=== PATIENT | male | born 1975 | race Caucasian/White ===

== ENCOUNTER 2024-05-20 12:18 | Emergency (ER) | payer OTHER, BC, SELFPAY ==
--- OUTSIDE RECORDS SUMMARY | 2024-05-20 12:22 | XMS_ITS | Patient Health Record ---
Author Organization [facility] Address [address] [place] [address] Care Team Providers Care Grill Attendant Name Role Phone Christopher Del Real Primary Care Provider Allergies No Known Allergies Reason For Referral No Information Medications Medication SIG (Take, Route, Frequency, Duration) Notes Start Date End Date Status Wellbutrin SR 100 MG 1 tablet in the mor pooja Orally twice a day for 30 day(s) Active Atorvastatin Calcium 10 MG 1 tablet Oral ly Once a day for 30 day(s) 10/08/2021 Active Omeprazole 40 MG 1 capsule 30 minutes before morning meal Orally Once a day for 30 days Active Social History Tobacco Use: Social History Observation Description Date Details (start date - stop date) Current Smoker NA - NA Sex Assigned At : Social History Observation Description Sex Assigned At Male Dont use, Tobacco Use/Smoking Question Answer Notes Are you a current every day smoker Additional Findings: Tobacco User Heavy cigarett e smoker (20-39 cigs/day) Alcohol Screen (Audit-C) Question Answer Notes Did you have a drink containing alcohol in the p ast year? Yes PRAPARE Question Answer Notes What is your current housing situation? I have h ousing Are you worried about losing your housing? No What is the highest level of school that you have finished? 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 Check all that apply Utilities Has lack of transportation k ept you from medical appointments, meetings, work or from getting things needed for daily living? No How often do you see or talk to people that you care about and feel close to? (For example: talking to friends on the phone, visiting friends or family, going to scientology or club meetings) More than 5 times a week How stressed are you? Stress is when someone feels tense, nervous, anxious, or can\t sleep at night because their mind is troubled Somewhat In the past year have you sp ent more than 2 nights in a row in a detention, long term, fci center, or juvenile correctional facility? Yes What was your release date? 01/10/2021 Are you a refugee? No What country are you from? [place] Do you feel physically and e motionally safe where you currently live? Yes In the past year, have you b een afraid of your partner or ex-partner? No PRAPARE Score: 4 Problems Problem Type SNOMED Code ICD Code Onset Dates Problem Status W/U Status Risk Notes Problem Tobacco user (805216966) Nicotine dependence, unspecified, uncomplicated (F17.200) Active confirmed Problem 804553377 Adjustment disor chrystal with mixed anxiety and depressed mood (F43.23) 2 Active confirmed Problem 63436397 ADHD (attention deficit hyperactivity disorder), combined type (F90.2) Active confirmed Problem 74485382 PTSD (post-traum atic stress disorder) (F43.10) 2 Active confirmed Problem 43164959 EFRAIN (generalized anxiety disorder) (F41.1) 2 Active confirmed Problem 53000891 Sleep disturbanc e (G47.9) Active confirmed Problem 361720605 MDD (major depressive disorder), recurrent episode, moderate (F33.1) 2 Active confirmed Problem Tobacco user (554524719) Nicotine addiction (F17.200) Active confirmed Problem 953131961 Obesity (BMI 30-39.9) (E66.9) Active confirmed Problem 18573372 Hyperlipidemia, unspecified hyperlipidemia type (E78.5) Active confirmed Problem 733450558 Tobacco use diso rder (F17.200) Active confirmed Problem Obesity (773470579) Obesity, unspecified classification, unspecified obesity type, unspecified whether serious comorbidity present (E66.9) Active confirmed Problem 907785409 Gastroesophageal reflux disease, unspecified whether esophagitis present (K21.9) Active confirmed Problem 073971115 Methamphetamine use disorder, severe, dependence (F15.20) Active confirmed Plan Of Treatment Future Test Test Name Order Date Hemoglobin A1c* 04/08/2022 Lipid Panel* 04/08/2022 CMP 14 Comprehensive Metabolic Panel* Insurance Providers Payer Name Payer Address Payer Phone Subscriber Number Group Number Insured Name Patient Relationship to Insured Coverage Start Date Coverage End Date [facility] [address] [place] [address] [id number] 1 Tim Banda Self - patient is the insured 1 [facility] [address] [facility] [address] [place] [address] [id number] 1 Tim Banda Self - patient is the insured 1 Medical (General) History Medical History History ICD Code Prediabetes Hyperlipidemia MDD/EFRAIN Surgical History Surgery Date(Month/Year) Galbladder removal 2016 Hospitalization History Reason Date(Month/Year)
--- OUTSIDE RECORDS SUMMARY | 2024-05-20 12:22 | XMS_ITS | Data Portability ---
Author Organization [place] - [facility] [employer], Main Office Address [address] [place] [address] Assessment Encounter Date Assessment Date Assessment LastModified by Organization Details LastModified Time 05/05/2022 05/05/2022 Blood work stool studies he can go ahead and take some Nexium continue that try some cholestyramine as some of the diarrhea seems to be after cholecystectomy possibly some bile salt diarrhea follow-up with me in 1 month [email or web address] Not available 05/17/2022 21:33:22 07/03/2022 07/03/[address] scan abdom en and pelvis see me back 4 months [email or web address] Not available 07/03/2022 23:12:55 Plan of Treatment Reminders Order Date Submit Date Provider Last Modified By Organization Details Last Modified Time Details Appointments None recorded. Lab TSH, serum or plasma 2022 023 [facility] (Lab), [address] [place], [address], 3 19:45:58 T4, free, serum 2022 023 [facility] (Lab), [address] [place], [address], 3 19:31:47 T3, free, serum or plasma 2022 023 [facility] (Lab), [address] [place], [address], 3 19:25:02 O&P (ova & parasites), stool 2022 023 [facility] (Lab), [address] [place], [address], 3 17:20:43 culture, stool - stool C&S 2022 023 [facility] (Lab), [address] [place], [address], 3 11:02:00 C diff toxin A+B, qualitative , stool 2022 023 [facility] (Lab), [address] [place], [address], 3 17:20:54 inflammator y bowel disease Ab panel, serum 2022 023 [facility] (Lab), [address] [place], [address], 3 17:20:59 CMP, serum or plasma 2022 023 [facility] (Lab), [address] [place], [address], 3 18:00:22 CBC w/ auto diff 2022 023 [facility] (Lab), [address] [place], [address], 3 16:58:16 ESR (erythrocyt e sedimentati on rate), blood 2022 023 [facility] (Lab), [address] [place], [address], 3 17:25:01 C-reactive protein, quantitativ e, serum or plasma 2022 023 [facility] (Lab), [address] [place], [address], 3 17:20:34 lipid panel, serum 2022 023 [facility] (Lab), [address] [place], [address], 3 18:00:27 Referral gastroenter ologist referral - Pt needs office visit please. 2022 023 [facility] Valentino Baldwin MD, [address], [address], [place], [address], 3 10:12:14 Procedures None recorded. Surgeries None recorded. Imaging CT, abdomen + pelvis, w/ contrast 2022 023 [facility] ([facility]), [address] [place], [address], 3 09:06:08 Medication Orders Cholestyram ine Light 4 gram oral powder 2022 023 [email or web address] [id number], [address] , [place], [place], [id number], 3 17:45:06 Patient TargetsNo targets recorded. Patient InstructionsNo instructions recorded. 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 Referring Physician: Leo Pérez, Internal Medicine, Encounter Date: 07/03/2022 Results Created Date Observation Date Name Description Value Unit Range Abnormal Flag Note LastModifiedBy Organization Detail LastModifiedTime 06/21/1906/20/2022 CBC/C OMPLE TE BLD COUNT W/DIF F white blood cells 8.0 x10'3 /uL 4.2-10 .8 Not Available [facility] (Lab) [address] [place], [address], 06/20/2022 16:58:16 06/21/19 23 06/20/2022 CBC/C OMPLE TE BLD COUNT W/DIF F red blood cells 4.92 x10'6 /uL 4.10-5 .80 Not Available [facility] (Lab) [address] [place], [address], 06/20/2022 16:58:16 06/21/1906/20/2022 CBC/C OMPLE TE BLD COUNT W/DIF F hemoglobin 14.4 g/dL 13.2-1 7.0 Not Available [facility] (Lab) [address] [place], [address], 06/20/2022 16:58:16 06/21/19 23 06/20/2022 CBC/C OMPLE TE BLD COUNT W/DIF F hematocrit 43.5 % 39.3-5 0.0 Not Available [facility] (Lab) [address] [place], [address], 06/20/2022 16:58:16 06/21/1906/20/2022 CBC/C OMPLE TE BLD COUNT W/DIF F mean red cell volume 88.4 fL 80.0-9 7.0 Not Available [facility] (Lab) [address] [place], [address], 06/20/2022 16:58:16 06/21/1906/20/2022 CBC/C OMPLE TE BLD COUNT W/DIF F mean red cell hemoglobin 29.3 pg 27.0-3 3.0 Not Available [facility] (Lab) [address] [place], [address], 06/20/2022 16:58:16 06/21/19 23 06/20/2022 CBC/C OMPLE TE BLD COUNT W/DIF F mean RBC HGB concentratio n 33.1 g/dL 31.0-3 6.0 Not Available [facility] (Lab) [address] [place], [address], 06/20/2022 16:58:16 06/21/19 23 06/20/2022 CBC/C OMPLE TE BLD COUNT W/DIF F red cell distribution width 13.1 % 11.8-1 5.5 Not Available [facility] (Lab) [address] [place], [address], 06/20/2022 16:58:16 06/21/1906/20/2022 CBC/C OMPLE TE BLD COUNT W/DIF F platelets 318 x10'3 /uL 150-40 0 Not Available [facility] (Lab) [address] [place], [address], 06/20/2022 16:58:16 06/21/1906/20/2022 CBC/C OMPLE TE BLD COUNT W/DIF F mean platelet volume 10.0 fL 9.0-12 .4 Not Available [facility] (Lab) [address] [place], [address], 06/20/2022 16:58:16 06/21/1906/20/2022 CBC/C OMPLE TE BLD COUNT W/DIF F neutrophils 59.8 % 39.0-7 2.0 Not Available [facility] (Lab) [address] [place], [address], 06/20/2022 16:58:16 06/21/1906/20/2022 CBC/C OMPLE TE BLD COUNT W/DIF F lymphocytes 27.3 % 16.0-4 7.0 Not Available [facility] (Lab) [address] [place], [address], 06/20/2022 16:58:16 06/21/1906/20/2022 CBC/C OMPLE TE BLD COUNT W/DIF F monocytes 11.0 % 5.0-12 .0 Not Available [facility] (Lab) [address] [place], [address], 06/20/2022 16:58:16 06/21/19 23 06/20/2022 CBC/C OMPLE TE BLD COUNT W/DIF F eosinophils 0.8 % 1.0-7. 0 low Not Available [facility] (Lab) [address] [place], [address], 06/20/2022 16:58:16 06/21/19 23 06/20/2022 CBC/C OMPLE TE BLD COUNT W/DIF F basophils 0.8 % 0.0-2. 0 Not Available [facility] (Lab) [address] [place], [address], 06/20/2022 16:58:16 06/21/19 23 06/20/2022 CBC/C OMPLE TE BLD COUNT W/DIF F immature granulocytes 0.3 % 0.00-0 .50 Not Available [facility] (Lab) [address] [place], [address], 06/20/2022 16:58:16 06/21/1906/20/2022 CBC/C OMPLE TE BLD COUNT W/DIF F neutrophils, absolute count 4.79 x10'3 /uL 1.5-8. 0 Not Available [facility] (Lab) [address] [place], [address], 06/20/2022 16:58:16 06/21/19 23 06/20/2022 CBC/C OMPLE TE BLD COUNT W/DIF F lymphocytes, absolute count 2.18 x10'3 /uL 1.07-3 .43 Not Available [facility] (Lab) [address] [place], [address], 06/20/2022 16:58:16 06/21/19 23 06/20/2022 CBC/C OMPLE TE BLD COUNT W/DIF F monocytes, absolute count 0.88 x10'3 /uL 0.29-0 .99 Not Available [facility] (Lab) [address] [place], [address], 06/20/2022 16:58:16 0506/20/2022 CBC/C OMPLE TE BLD COUNT W/DIF F eosinophils, absolute count 0.06 x10'3 /uL 0.02-0 .53 Not Available [facility] (Lab) [address] [place], [address], 06/20/2022 16:58:16 06/21/19 23 06/20/2022 CBC/C OMPLE TE BLD COUNT W/DIF F basophils, absolute count 0.06 x10'3 /uL 0.01-0 .08 Not Available [facility] (Lab) [address] [place], [address], 06/20/2022 16:58:16 06/21/19 23 06/20/2022 CBC/C OMPLE TE BLD COUNT W/DIF F immature granulocytes ,absolute 0.02 x10'3 /uL 0.00-0 .05 Not Available [facility] (Lab) [address] [place], [address], 06/20/2022 16:58:16 06/21/19 23 06/20/2022 CBC/C OMPLE TE BLD COUNT W/DIF F nucleated red blood cells 0.0 % -0 Not Available [facility] (Lab) [address] [place], [address], 06/20/2022 16:58:16 06/21/19 23 06/20/2022 CBC/C OMPLE TE BLD COUNT W/DIF F NRBC# 0.00 x10'3 /uL Not Available [facility] (Lab) [address] [place], [address], 06/20/2022 16:58:16 06/21/19 23 06/20/2022 SEDIM ENTAT ION RATE erythrocyte sedimentatio n rate 7 mm/HR 0-20 Not Available [facility] (Lab) [address] [place], [address], 06/20/2022 17:25:01 06/21/19 23 06/20/2022 COMPR EHENS ROVERTO METAB OLIC PANEL sodium 140 mmol/ L 137-14 5 Not Available [facility] (Lab) [address] [place], [address], 06/20/2022 18:00:22 06/21/19 23 06/20/2022 COMPR EHENS ROVERTO METAB OLIC PANEL potassium 4.4 mmol/ L 3.5-5. 1 Not Available [facility] (Lab) [address] [place], [address], 06/20/2022 18:00:22 06/21/19 23 06/20/2022 COMPR EHENS ROVERTO METAB OLIC PANEL chloride 105 mmol/ L 98-107 Not Available [facility] (Lab) [address] [place], [address], 06/20/2022 18:00:22 06/21/19 23 06/20/2022 COMPR EHENS ROVERTO METAB OLIC PANEL carbon dioxide 28 mmol/ L 22-30 Not Available [facility] (Lab) [address] [place], [address], 06/20/2022 18:00:22 06/21/19 23 06/20/2022 COMPR EHENS ROVERTO METAB OLIC PANEL anion gap 11.4 mmol/ L 14-22 low Not Available [facility] (Lab) [address] [place], [address], 06/20/2022 18:00:22 06/21/19 23 06/20/2022 COMPR EHENS ROVERTO METAB OLIC PANEL glucose 78 mg/dL 70-99 Not Available [facility] (Lab) [address] [place], [address], 06/20/2022 18:00:22 06/21/19 23 06/20/2022 COMPR EHENS ROVERTO METAB OLIC PANEL BUN 21 mg/dL 8-19 high Not Available [facility] (Lab) [address] [place], [address], 06/20/2022 18:00:22 06/21/1906/20/2022 COMPR EHENS ROVERTO METAB OLIC PANEL creatinine 0.95 mg/dL 0.66-1 .25 Not Available [facility] (Lab) [address] [place], [address], 06/20/2022 18:00:22 06/21/1906/20/2022 COMPR EHENS ROVERTO METAB OLIC PANEL GFR >60 Refer ence Range : Brewer ge GFR Healt hy Adult : >60 mL/mi n/1.7 3 m2 Chron ic Kidne y Disea se: 15-60 mL/mi n/1.7 3 m2 Kidne y Failu re: <15/m L/min /1.73 m2 www.n iddk. nih.g ov The MDRD study equat ion has not been valid ated in child samantha <18 years of age; pregn ant women ; the elder ly >85 years of age; or in some racia l or ethni c subgr oups, such as Hisnc nics. Outsi de the valid ated martha eters , estim ated GFR is less accur ate, requi ring clini trev judgm ent on a case- by-ca se basis . Clini trev inter preta tion for other races and ages must be made by the clini maicol. The MDRD study equat ion has not been valid ated for the evalu ation of serum creat inine relat ed to nutri bobby l statu s or medic ation usage . For perso ns <18 years of age, a pedia tric GFR calcu lator is avail able on the NKF websi te: https ://jody henderson.kali mcgrath/pr ofess ional s/kdo qi/gf r_cal culat or Not Available [facility] (Lab) [address] [place], [address], 06/20/2022 18:00:22 06/21/1906/20/2022 COMPR EHENS ROVERTO METAB OLIC PANEL alkaline phosphatase 37 U/L 38-126 low Not Available [facility] (Lab) [address] [facility] [place], [address], 06/20/2022 18:00:22 06/21/19 23 06/20/2022 COMPR EHENS ROVERTO METAB OLIC PANEL alanine aminotransfe rase 30 U/L 0-50 Not Available [facility] (Lab) [address] [place], [address], 06/20/2022 18:00:22 06/21/19 23 06/20/2022 COMPR EHENS ROVERTO METAB OLIC PANEL aspartate aminotransfe rase 34 U/L 15-46 Not Available [facility] (Lab) [address] [place], [address], 06/20/2022 18:00:22 06/21/19 23 06/20/2022 COMPR EHENS ROVERTO METAB OLIC PANEL bilirubin, total 0.40 mg/dL 0.20-1 .30 Not Available [facility] (Lab) [address] [place], [address], 06/20/2022 18:00:22 06/21/19 23 06/20/2022 COMPR EHENS ROVERTO METAB OLIC PANEL calcium 8.7 mg/dL 8.4-10 .2 Not Available [facility] (Lab) [address] [place], [address], 06/20/2022 18:00:22 06/21/19 23 06/20/2022 COMPR EHENS ROVERTO METAB OLIC PANEL total protein 6.8 g/dL 6.3-8. 2 Not Available [facility] (Lab) [address] [place], [address], 06/20/2022 18:00:22 06/21/19 23 06/20/2022 COMPR EHENS ROVERTO METAB OLIC PANEL albumin 4.0 g/dL 3.4-5. 0 Not Available [facility] (Lab) [address] [place], [address], 06/20/2022 18:00:22 06/21/1906/20/2022 COMPR EHENS ROVERTO METAB OLIC PANEL globulin 2.8 g/dL 2.6-4. 2 Not Available [facility] (Lab) [address] [place], [address], 06/20/2022 18:00:22 06/21/1906/20/2022 COMPR EHENS ROVERTO METAB OLIC PANEL A/G ratio 1.4 ratio 1.0-2. 0 Not Available [facility] (Lab) [address] [place], [address], 06/20/2022 18:00:22 06/21/1906/20/2022 LIPID PANEL cholesterol 226 mg/dL 140-19 9 high NIH JOSE NSUS RECOM MENDA TION FOR SWATI STERO L: ADULT CHILD LOW RISK: <200 <170 BORDE RLINE : <200- 239 ----- HIGH RISK: >240 >200 Not Available [facility] (Lab) [address] [place], [address], 06/20/2022 18:00:27 06/21/1906/20/2022 LIPID PANEL triglyceride s 110 mg/dL 0-150 NIH JOSE NSUS REPOR T RECOM MENDA TION FOR TRIGL YCERI JEWELL: ADULT CHILD LOW RISK: <150 ----- BODER LINE: 150-1 99 ----- HIGH RISK: >200 ----- Not Available [facility] (Lab) [address] [place], [address], 06/20/2022 18:00:27 06/21/1906/20/2022 LIPID PANEL HDL cholesterol 43 mg/dL 40- Not Available [facility] (Lab) [address] [place], [address], 06/20/2022 18:00:27 06/21/19 23 06/20/2022 LIPID PANEL LDL cholesterol, calculated 161 mg/dL 0-130 high NIH JOSE NSUS REPOR T RECOM MENDA TIONS FOR LDL: ADULT CHILD LOW RISK <130 <110 (OPTI MAL LDL) <100 ----- BORDE RLINE : 130-1 59 ----- HIGH RISK: >160 >130 A TRIGL YCERI DE RESUL T >400 INVAL IDATE S THE CALCU LATIO N FOR LDL FRACT IONAT ION - THE LDL RESUL T WILL NOT BE REPOR DONNELL. Not Available [facility] (Lab) [address] [place], [address], 06/20/2022 18:00:27 06/21/1906/20/2022 C REACT ROVERTO PROTE IN,UL TRA SENS C-reactive protein 0.23 mg/dL 0.0-0. 5 Not Available [facility] (Lab) [address] [place], [address], 06/20/2022 19:20:13 06/21/1906/20/2022 T3 FREE free T3 4.0 pg/mL 2.77-5 .27 Not Available [facility] (Lab) [address] [place], [address], 06/20/2022 19:32:23 06/21/19 23 06/20/2022 T4 FREE free T4 0.94 NG/dL 0.78-2 .19 Not Available [facility] (Lab) [address] [place], [address], 06/20/2022 19:31:47 06/21/1906/20/2022 TSH thyroid-stim ulating hormone 0.838 uIU/m L 0.465- 4.680 Not Available [facility] (Lab) [address] [place], [address], 06/20/2022 19:45:58 06/21/19 23 06/23/2022 IBD/I NFLAM M BOWEL DISEA SE PANL marcial 35 units 0-50 Negat roverto <45 Equiv ocal 45 - 50 Posit roverto >50 Not Available [facility] (Lab) [address] [place], [address], 06/23/2022 17:08:58 06/21/19 23 06/23/2022 IBD/I NFLAM M BOWEL DISEA SE PANL acca 28 units 0-90 Negat roverto <80 Equiv ocal 80 - 90 Posit roverto >90 Not Available [facility] (Lab) [address] [place], [address], 06/23/2022 17:08:58 06/21/19 23 06/23/2022 IBD/I NFLAM M BOWEL DISEA SE PANL alca 53 units 0-60 Negat roverto <55 Equiv ocal 55 - 60 Posit roverto >60 Not Available [facility] (Lab) [address] [place], [address], 06/23/2022 17:08:58 06/21/19 23 06/23/2022 IBD/I NFLAM M BOWEL DISEA SE PANL amca 34 units 0-100 Negat roverto < 90 Equiv ocal 90 - 100 Posit roverto >100 . This test was devel oped and its perfo rmanc e omero cteri stics deter mined by [facility]. It has not been clear ed or appro zenaida by the Food and Drug Admin istra tion. The FDA has deter mined that such clear ance or appro geovanni is not neces ravinder. Not Available [facility] (Lab) [address] [place], [address], 06/23/2022 17:08:58 06/21/19 23 06/23/2022 IBD/I NFLAM M BOWEL DISEA SE PANL A-panca Negati ve negati ve Not Available [facility] (Lab) [address] [place], [address], 06/23/2022 17:08:58 06/21/19 23 06/23/2022 IBD/I NFLAM M BOWEL DISEA SE PANL commen Nathan Sheikh rn is not sugge stive of Infla mmato ry Bowel Disea se Perfo rmed at: [facility] [place] [address] , [place] [address] Lab Direc tor: Desi brito MD, Phone : [phone] Not Available [facility] (Lab) [address] [place], [address], 06/23/2022 17:08:58 06/22/19 23 06/23/2022 C DIFFI CILE TOXIN /EPI, DNA toxigenic C.difficile NEGATI VE Not Available [facility] (Lab) [address] [place], [address], 06/23/2022 13:11:28 06/22/19 23 06/23/2022 C DIFFI CILE TOXIN /EPI, DNA 027-nap1-bi strain NEGATI VE 027-N API-B 1 STRAI N RESUL TS ARE CONSI DERED TO BE PRESU MPTIV E. Not Available [facility] (Lab) [address] [place], [address], 06/23/2022 13:11:28 06/22/19 23 06/24/2022 SHIGA (E.CO LI) TOXIN STOOL toxin 1 NEGATI VE Not Available [facility] (Lab) [address] [place], [address], 06/24/2022 11:19:06 06/22/1906/24/2022 SHIGA (E.CO LI) TOXIN STOOL toxin 2 NEGATI VE THIS TEST IS FOR THE RAPID DETEC TION OF SHIGA TOXIN -PROD UCING STRAI NS OF ENTER OHEMO RRAGH IC E. COLI. Not Available [facility] (Lab) [address] [place], [address], 06/24/2022 11:19:06 06/22/19 23 06/24/2022 SHIGA (E.CO LI) TOXIN STOOL QC pos POSITI VE Not Available [facility] (Lab) [address] [place], [address], 06/24/2022 11:19:06 06/22/19 23 06/24/2022 SHIGA (E.CO LI) TOXIN STOOL QC neg NEGATI VE Not Available [facility] (Lab) [address] [place], [address], 06/24/2022 11:19:06 06/22/19 23 06/30/2022 OVA + ALE ITE EXAM ova + parasite exam Final report These resul ts were obtai delroy using wet prepa ratio n(s) and trich yuli stain ed smear . This test does not inclu de testi ng for Crypt ospor idium parvu m, Cyclo spora , or Micro spori jitendra. Not Available [facility] (Lab) [address] [place], [address], 06/30/2022 14:10:04 06/22/19 23 06/30/2022 OVA + ALE ITE EXAM result 1 Commen t No ova, cysts , or ale ites seen. . One negat roverto speci men does not rule out the possi bilit y of a ale itic infec tion. Perfo rmed at: [facility] [place] [address] Lab Direc tor: Salvador leija PhD, Phone : [phone] Not Available [facility] (Lab) [address] [place], [address], 06/30/2022 14:10:04 03/29/19 22 03/26/2021 CT, neck, w/ contr ast No observ ation record ed. [id number] [facility] [address] [place], [address], 04/09/2022 15:40:56 Result Notes None recorded. Problems Name Problem SNOMED Code Status Onset Date Resolution Date Notes Provider Name and Address Organization Details Recorded Time Cellulitis 452026473 Active Not Available [facility] 3 15:40:15 Mass of left parotid gland 5120751150595 9103 Active 2021 Not Available [facility] 3 15:40:15 Parotid sialolithi asis 441781782 Active 2021 Not Available [facility] 3 15:40:15 Abdominal pain 69801053 Active Not Available [facility] 3 15:40:15 Chronic sialadenit is 904551053 Active 2021 Not Available [facility] 3 15:40:15 Gastroesop hageal reflux disease 322667557 Active Not Available [facility] 3 15:40:15 Low back pain 168673467 Active Not Available [facility] 3 15:40:15 Bronchitis 11672808 Active Not Available [facility] 3 15:40:15 Shoulder pain 70261721 Active Not Available [facility] 3 15:40:16 Diarrhea 01954820 Active 2022 SHAN Smallwood [employer] 3 17:33:36 Problem Notes None recorded. Procedures Surgical History Date Name Laterality Status Provider Name and Address Organization Details Recorded Time Cholecystectomy completed SHAN Peace [employer] 05/05/2022 16:55:30 Imaging Results Imaging Date Name Status LastModified by Organiz ation Details LastModified Time 03/26/2021 CT, neck, w/ contrast completed [id number] [facility] [address] [place], [address], 04/09/2022 15:40:56 Procedure Notes None recorded. Medical Equipment None Reported. Allergies No known drug allergies Medications Name Sig Start Date Stop Date Status Note LastModified by Organization Details LastModified Time cyclobenzap rine 10 mg tablet Take 1 tablet 3 times a day by oral route as needed. active Not Available Not Available No t Available amoxicillin 500 mg capsule TAKE 1 CAPSULE BY MOUTH THREE TIMES DAILY EVERY 8 HOURS 05/05 completed Not Available Not Available Not Available clindamycin HCl 300 mg capsule 03/18 completed Not Available Not Available Not Available atorvastati n 10 mg tablet 05/05 completed Not Available Not Available Not Available azithromyci n 250 mg tablet 2 tabs po qd x 1 day then 1 tab po qd x 4 days 12/28 completed Not Available Not Available Not Available ibuprofen 800 mg tablet 05/05 completed Not Available Not Available Not Available nicotine (polacrilex ) 2 mg gum 05/05 completed Not Available Not Available Not Available ranitidine 300 mg tablet Take 1 tablet twice a day by oral route. 12/28 completed Not Available Not Available Not Available Keflex 500 mg capsule Take 1 capsule every 12 hours by oral route for 7 days. 11/17 completed Not Available Not Available Not Available prednisone 20 mg tablet Take 2 tablets every day by oral route for 5 days. 10/16 completed Not Available Not Available Not Available hydrocodone 10 mg-acetamin ophen 325 mg tablet Take 1 tablet every 4 hours by oral route. 12/28 completed Not Available Not Available Not Available bupropion HCl SR 100 mg tablet,12 hr sustained-r elease 05/05 completed Not Available Not Available Not Available nicotine (polacrilex ) 4 mg gum 03/18 completed Not Available Not Available Not Available ranitidine 150 mg tablet Take 1 tablet twice a day by oral route. 03/18 completed Not Available Not Available Not Available nicotine 21 mg/24 hr daily transdermal patch 05/05 completed Not Available Not Available Not Available omeprazole 20 mg capsule,del ayed release 05/05 completed Not Available Not Available Not Available albuterol sulfate HFA 90 mcg/actuati on aerosol inhaler Inhale 2 puffs every 4 hours by inhalatio n route. 12/28 completed Not Available Not Available Not Available sertraline 50 mg tablet 05/05 completed Not Available Not Available Not Available amoxicillin 875 mg-potassiu m clavulanate 125 mg tablet 05/05 completed Not Available Not Available Not Available bupropion HCl XL 150 mg 24 hr tablet, extended release 03/18 completed Not Available Not Available Not Available esomeprazol e magnesium active Not Available Not Available Not Available Cholestyram ine Light 4 gram oral powder MIX 1 SCOOP IN LIQUID AND DRINK BY MOUTH EVERY DAY FOR 30 DAYS active Not Available Not Available No t Available Dexilant 60 mg capsule, delayed release Take 1 capsule every day by oral route for 56 days. 02/22 completed Not Available Not Available Not Available Probiotic active Not Available Not Rosio ilable Not Available Vitals Date Recorded Body mass index (BMI) Body height Body temperature Body weight Provider Name and Address Organization Details Last Updated DateTime 03/19/2021 34 kg/m2 182.88 cm 97.9 [degF] 983375.6 8 g Not Available [facility] 04/09/2022 15:40:02 Date Recorded Body mass index (BMI) Body height Body temperature Body weight Provider Name and Address Organization Details Last Updated DateTime 04/11/2021 34 kg/m2 182.88 cm 97.8 [degF] 250202.6 8 g Not Available [facility] 04/09/2022 15:40:02 Date Recorded Body weight Body height Body mass index (BMI) Body temperature Heart rate Systolic blood pressure Diastolic blood pressure Provider Name and Address Organization Details Last Updated DateTime 3 332975. 13 g 182.88 cm 33.2 kg/m2 98.7 [degF] 75 /min 114 mm[Hg] 78 mm[Hg] SHAN Peace [facility] [employer] 3 16:58:01 Date Recorded Body height Body mass index (BMI) Body weight Body temperature Heart rate Oxygen saturation Oxygen saturation in Arterial blood by Pulse oximetry Systolic blood pressure Diastolic blood pressure Provider Name and Address Organization Details Last Updated DateTime 3 182.88 cm 31.1 kg/m2 887821. 65 g 98.3 [degF] 72 /min 97 % 97 % 114 mm[Hg] 72 mm[Hg] Fidelia Estrada RN [facility] [employer] 3 16:42:41 Social History Question Answer Notes LastModified by Organizat ion Details LastModified Time Tobacco Smoking Status Former Smoker SHAN Peace null, [facility] [employer] 05/05/2022 16:53:22 Do You Have An Advance Directive? No [email or web address] Information not available 05/05/2022 What Is Your Level Of Alcohol Consumption? None [id number] Information not available 04/09/2022 What Is Your Level Of Caffeine Consumption? Heavy [email or web address] Information not available 05/05/2022 In The 14 Days Before Symptom Onset, Have You Had Close Contact With A Laboratory-confi rmed COVID-19 While That Case Was Ill? No [id number] Information not available 04/09/2022 In The 14 Days Before Symptom Onset, Have You Had Close Contact With A Person Who Is Under Investigation For COVID-19 While That Person Was Ill? No [id number] Information not available 04/09/2022 Are You Currently Employed? Yes [email or web address] Information not available 05/05/2022 What Type Of Diet Are You Following? REGULAR [email or web address] Information not available 05/05/2022 Do You Or Have You Ever Used E-cigarettes Or Vape? Current User Of Electronic Cigarettes [email or web address] Information not available 05/05/2022 What Is The Highest Grade Or Level Of School You Have Completed Or The Highest Degree You Have Received? 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 No [email or web address] Information not available 05/05/2022 What Is The Fluoride Status Of Your Home? Unknown [email or web address] Information not available 05/05/2022 Do You Use Insect Repellent Routinely? No Information not available 05/05/2022 Where [facility] You Live? [facility] [email or web address] Information not available 05/05/2022 Do You Have A Medical Power Of High School Academic Coach? No [email or web address] Information not available 05/05/2022 What Was The Date Of Your Most Recent Tobacco Screening? 07/03/2022 [email or web address] Information not available 07/03/2022 How Many Children Do You Have? 6 [email or web address] Information not available 05/05/2022 Do You Have Any Pets? Yes jrkssduwc25 Information not available 05/05/2022 What Is Your Relationship Status? [email or web address] Information not available 05/05/2022 Do You Use Your Seat Belt Or Car Seat Routinely? Yes [email or web address] Information not available 05/05/2022 Do You Have Smoke And Carbon Monoxide Detectors In Your Home? Yes [email or web address] Information not available 05/05/2022 Are You Passively Exposed To Smoke? Yes Information not available 05/05/2022 Are There Any Smokers In Your House? No [email or web address] Information not available 05/05/2022 How Much Tobacco Do You Smoke? 0.25 PPD [id number] Information not available 04/09/2022 Do You Feel Stressed (tense, Restless, Nervous, Or Anxious, Or Unable To Sleep At Night)? [id number] [email or web address] Information not available 05/05/2022 Do You Use Any Illicit Or Recreational Drugs? No [email or web address] Information not available 05/05/2022 Do You Use Sunscreen Routinely? No [email or web address] Information not available 05/05/2022 Have You Recently Traveled Abroad? No MIGRATION.93025 [id number] Information not available 04/09/2022 Do You Have Any Dietary Restrictions? No [email or web address] Information not available 05/05/2022 Do You Or Have You Ever Used Any Other Forms Of Tobacco Or Nicotine? Yes [email or web address] Information not available 05/05/2022 Sex: Unknown Functional Status Question Answer Note LastModified by Organization D etails LastModified Time What is your exercise level? None [email or web address] Information not available 05/05/2022 Mental Status None recorded. Family History Relationship Description Onset Age of this Age Resolved Age Notes LastModified by Organization Details LastModified Time Mother Diabetes mellitus [email or web address] Not available 04/10 16:50:22 Mother History of hypertension [email or web address] Not available 0 05/05/2022 16:50:39 Maternal Grandfather Family history of malignant neoplasm [email or web address] Not available 04/10 16:51:22 Maternal Grandmother Family history of malignant neoplasm [email or web address] Not available 04/10 16:51:22 Paternal Grandmother Family history of malignant neoplasm [email or web address] Not available 04/10 16:51:22 Paternal Grandmother History of hypertension [email or web address] Not available 0 05/05/2022 16:51:46 Paternal Grandmother Heart disease Not available 04/10 16:52:00 Medical History Condition Response MRSA N SLEEP APNEA N ALLERGIES/HAYFEVER N LUNG DISEASE/DISORDER N INSOMNIA N HISTORY OF DRUG ABUSE N RADIATION / CHEMOTHERAPY N COPD N HIGH CHOLESTEROL / HYPERLIPIDEMIA Y HYPERTHYROIDISM N BLOOD DISEASES N EAR OR HEARING PROBLEMS N HYPOTHYROIDISM N SHINGLES N DEPRESSION (INCLUDING POST ) Y HAVE YOU BEEN HOSPITALIZED OR SEEN IN [facility] ER IN THE PAST YEAR ? N STROKE/TIA N ULCERS N OBESITY N ANEURYSM N HISTORY WITH COMPLICATIONS WITH ANESTHES IA ? N NO SIGNIFICANT PAST MEDICAL HISTORY N USE OF BLOOD THINNERS N DIABETES, TYPE Y PARATHYROID DISEASE N ENT N SEASONAL ALLERGIES N HEARTBURN / REFLUX Y HEPATITIS / LIVER DISEASE N SLEEP DISORDER N HEADACHES/MIGRAINES Y SEIZURES/EPILEPSY N CHF N PACEMAKER N DIZZINESS N HEART DISEASE/HEART PROBLEMS N AIDS/HIV N FRACTURES N HYPERTENSION N CANCER: SPECIFY N TOURETTE'S N BLOOD TRANSFUSION N ANESTHESIA COMPLICATIONS N ANEMIA/BLOOD DISORDER N CHRONIC EAR INFECTIONS N TUBERCULOSIS N Immunizations Vaccine Type Date Status Note Provider Nam e and Address Organization Details Recorded Time Influenza, split virus, trivalent, PF 01/17/2014 completed Not Available [facility] 15:[facility] Past Encounters Encounter ID Performer Location Encounter Start Date Encounter Closed Date Diagnosis/Indication Diagnosis SNOMED-CT Code Diagnosis ICD10 Code Diagnosis Note [id number] [facility] [place] [address] [place] [address] 03/19/2021 00:00:00 03/19/2021 12:20:47 [id number] [facility] [place] [address] [place] [address] 04/11/2021 00:00:00 04/11/2021 15:41:25 [id number] Leo Pérez MD [facility] [address] [facility], [address] [place] [address] 05/05/2022 16:34:06 05/20/2022 09:54:03 Abdominal pain 56821943 R10.9 Diarrhea 49978896 R19.7 Screening for cardiovascular system disease 680554965 Z13.6 [id number] Leo Pérez MD [facility] [address] [facility] [address] [place] [address] 07/03/2022 16:03:07 07/03/2022 17:18:03 Abdominal pain 28048961 R10.9 Health Concerns Section Related Observation LastModified by Organization Detai ls LastModified Time None Recorded Concern Status LastModified by Organization Details LastModified Time None Recorded Advance Directives Directive N: Payers Encounter Date Sequence Insurance Name Policy Number Policy Pope Covered Member ID Pope Member ID Guarantor Name 05/05/2022 2 [place] [facility] (MEDICAID REPLACEMENT - HMO) [id number] Tim Banda [id number] Tim Banda 05/05/2022 1 [employer] [place]) [id number] Tim Banda [id number] Tim Banda 07/03/2022 2 [place] [facility] ([place]ICAID REPLACEMENT - [place]MO) [id number] Tim Banda [id number] Tim Banda 07/03/2022 1 [place] [id number] Tim W Banda [id number] Tim Banda Notes Date Note Type Note Provider Name and Address Organization Details Recorded Time 05/05/2022 text/html 46-year-old stom ach problems for about 10 years or getting worse sometimes cramping not clearly related to food activity or anything like that he will get these episodes have some diarrhea self is ongoing no blood no mucus no endoscopies he says he has lost about 15-20 lb past medical history of depression. His medications on his own states he has also been told he is prediabeticMeds nonePast medical history depression stop taking medicine on his own. Also told 3 by diabetic. Allergies none. Surgeries cholecystectomy. Family history hypertension. positive a being no alcohol works for a [employer] in [place] Leo Pérez MD [address] [facility], [place], [address], [place] [facility] [employer] 05/17/2022 21:33:44 07/03/2022 text/html He really did no t do anything I asked him to do and he has the same symptoms of abdominal discomfort and some loose stool Leo Pérez MD [address] [facility], [address] [address], [place], [address], [facility] 07/03/2022 23:13:22
--- OUTSIDE RECORDS SUMMARY | 2024-05-20 12:23 | XMS_ITS | Data Portability ---
Author Organization [facility] Address [address] [place] [address] Assessment No assessment recorded. Plan of Treatment Reminders Order Date Submit Date Provider Last Modified By Organization Details Last Modified Time Details Appointments None recorded. Lab unlisted lab - compliance drug analysis, ur 2016 017 [facility], [address] [place] [address], [address], [place], [address], 7 13:11:05 Referral physical therapy shoulder referral - Patient was given a copy of referral. patient needs to schedule appt, No referral needed at this time. [email or web address] [facility], [address] [place], [address], 7 14:42:33 Procedures None recorded. Surgeries None recorded. Imaging XR, shoulder, 2 or more view 2016 017 [facility] ([facility] Sched[facility]), [address] [place], [address], 7 18:11:40 Medication Orders baclofen 10 mg tablet 2016 017 INTERFACE Not available 7 15:04:01 Indu Allergy 60 mg tablet 2016 017 INTERFACE Not available 7 15:04:00 Zithromax Z-Carlos 250 mg tablet 2016 017 INTERFACE Not available 7 15:03:58 Patient TargetsNo targets recorded. Patient Instructions Encounter Date Encounter Id Patient Instructions Last Modified By Organization Details Last Modified Time 09/17/2016 [id number] deciding about using medicines to quit smoking [facility] Not available 09/17/2016 15:03:09 Quitting Tobacco : Care Instructions [facility] Not available 09/17/2016 15:03:09 chronic sinusitis: care instructions [facility] Not available 09/17/2016 15:03:09 Reason for Referral Patient was given a copy of referral. patient needs to schedule appt, No referral needed at this time. Referring Physician: Gurdeep Thomas, Internal Medicine, Encounter Date: 09/17/2016 Results Created Date Observation Date Name Description Value Unit Range Abnormal Flag Note LastModifiedBy Organization Detail LastModifiedTime 09/18/19 17 09/24/2016 drug scree n, urine summary FINAL ===== ===== ===== ===== ===== ===== ===== ===== ===== ===== ===== ===== ===== === TOXAS SURE COMP DRUG KILEY SIS,U R ===== ===== ===== ===== ===== ===== ===== ===== ===== ===== ===== ===== ===== === TEST RESUL T FLAG UNITS DRUG PRESE NT SALIC YLATE PRESE NT ===== ===== ===== ===== ===== ===== ===== ===== ===== ===== ===== ===== ===== === TEST RESUL T FLAG UNITS REF RANGE CREAT ININE 102 MG/DL >=20 ===== ===== ===== ===== ===== ===== ===== ===== ===== ===== ===== ===== ===== === DECLA RED MEDIC ATION S: MEDIC ATION LIST WAS NOT PROVI DED. ===== ===== ===== ===== ===== ===== ===== ===== ===== ===== ===== ===== ===== === FOR CLINI TRAMAINE CONSU LTATI ON, PLEAS E CALL . ===== ===== ===== ===== ===== ===== ===== ===== ===== ===== ===== ===== ===== === Not Available [facility] [address], [place], [address], 09/24/2016 13:11:05 09/18/19 17 09/24/2016 drug scree n, urine pdf . Not Available [facility] [address], [place], [address], 09/24/2016 13:11:05 09/18/19 17 09/17/2016 XR, shoul chrystal, 2 or more view No observ ation record ed. [facility] [address] [place], [address], 09/18/2016 11:55:52 09/25/19 17 09/24/2016 XR, shoul chrystal, 2 or more view No observ ation record ed. [facility] (Imaging) [address] [place], [address], 09/24/2016 10:55:00 Result Notes None recorded. Procedures Surgical History Date Name Laterality Status Provider Name and Address Organization Details Recorded Time Hernia Repair completed JADEN Paul [facility] 09/17/2016 14:08:45 Cholecystectomy completed JADEN Paul - [facility] 09/17/2016 14:16:05 Imaging Results Imaging Date Name Status LastModified by [facility] Details LastModified Time 09/17/2016 XR, shoulder, 2 or more view completed [facility] [address] [place], [address], 09/18/2016 11:55:52 09/24/2016 XR, shoulder, 2 or more view completed [facility] ([facility]) [address] [place], [address], 09/24/2016 10:55:00 Procedure Notes None recorded. Medical Equipment None Reported. Allergies No known drug allergies Medications Name Sig Start Date Stop Date Status Note LastModified by Organization Details LastModified Time Zithromax Z-Carlos 250 mg tablet TAKE 2 TABLETS (500 MG) BY ORAL ROUTE ONCE DAILY FOR 1 DAY THEN 1 TABLET (250 MG) BY ORAL ROUTE ONCE DAILY FOR 4 DAYS active Not Available Not Available Not Avai lable baclofen 10 mg tablet Take 1 tablet 3 times a day by oral route with meals for 30 days. 017 active Not Available Not Available Not Avai lable Indu Allergy 60 mg tablet Take 1 tablet twice a day by oral route as directed for 30 days. active Not Available Not Available Not Avai lable Vitals Date Recorded Body height Body mass index (BMI) Body weight Body temperature Oxygen saturation Oxygen saturation in Arterial blood by Pulse oximetry Heart rate Systolic blood pressure Diastolic blood pressure Provider Name and Address Organization Details Last Updated DateTime 7 180.34 cm 33.3 kg/m2 784950. 58 g 97.7 [degF] 98 % 98 % 75 /min 116 mm[Hg] 80 mm[Hg] Ezequiel Banuelos MA [place] - [facility] 7 14:20:14 Social History Question Answer Notes LastModified by Organizat ion Details LastModified Time Tobacco Smoking Status Current Every Day Smoker cigarettes Ezequiel Banuelos MA null, [place] - [facility] 09/17/2016 14:14:30 What Is Your Level Of Alcohol Consumption? Moderate Beer -- Once A Week - [employer] Beers Information not available 09/17/2016 What Was The Date Of Your Most Recent Tobacco Screening? 09/17/2016 Information not available 09/02/2018 How Much Tobacco Do You Smoke? 1 PPD Information not available 09/17/2016 How Many Years Have You Smoked Tobacco? 10 Information not available 09/17/2016 Sex: Unknown Functional Status None recorded. Mental Status None recorded. Family History Relationship Description Onset Age of this Age Resolved Age Notes LastModified by Organization Details LastModified Time Mother Diabetes mellitus Not available 09/17 14:12:59 Mother Hypertensive disorder Not available 09/17 14:13:13 Mother Migraine Not availab le 09/17/2016 14:13:41 Sister Diabetes mellitus Not available 09/17 14:12:59 Sister Migraine Not availab le 09/17/2016 14:13:41 Father Hypertensive disorder Not available 09/17 14:13:13 Father Hypercholest erolemia Not available 09/17 14:13:22 Brother Migraine Not availa ble 09/17/2016 14:13:41 Medical History Condition Response Acid Reflux (GERD) Y Headaches Y Immunizations Vaccine Type Date Status Note Provider Nam e and Address Organization Details Recorded Time COVID-19, mRNA, LNP-S, PF, 100 mcg/0.5mL dose or 50 mcg/0.25mL dose 1 completed Chelle vann, [place] - [facility] 08/23/2020 13:12:51 COVID-19, mRNA, LNP-S, PF, 100 mcg/0.5mL dose or 50 mcg/0.25mL dose 1 completed [place]ann, [place] - [facility] 08/23/2020 13:13:32 pneumococcal, unspecified formulation 2 completed JADEN [place] - [facility] 09/17/2016 14:16:40 Past Encounters Encounter ID Performer Location Encounter Start Date Encounter Closed Date Diagnosis/Indication Diagnosis SNOMED-CT Code Diagnosis ICD10 Code Diagnosis Note [id number] JADEN Paul (Adult Med) [address] [place] [address] 09/17/2016 13:46:35 09/17/2016 15:08:36 Shoulder joint painful on movement 802361640 M25.519 Some times he woke up with pain at night. will try about 6 weeks t of non-surgic al interventi on .Heating pad. 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 F17.200 Chronic sinusitis 771239 00 J32.9 Health Concerns Section Related Observation LastModified by Organization Detai ls LastModified Time None Recorded Concern Status LastModified by Organization Details LastModified Time None Recorded Advance Directives Directive None Recorded Payers Encounter Date Sequence Insurance Name Policy Number Policy Pope Covered Member ID Pope Member ID Guarantor Name 09/17/2016 1 [facility] - DOS PRIOR TO 2020 (MEDICAID REPLACEMENT - HMO) Tim Banda [id number] Tim Banda Notes Date Note Type Note Provider Name and Address Organization Details Recorded Time 09/17/2016 text/html Chronic right shoulder pain by litting weight since 10 years ago, unemployed, smokes cigarettes, NKDA, left-handed. History of gall bladder surgery. JADEN Paul, [place] - [facility] 09/17/2016 15:15:35
--- OUTSIDE RECORDS SUMMARY | 2024-05-20 12:23 | XMS_ITS | Continuity of Care Document ---
Author Organization [facility] Address [address] [facility] [place] [address] Phone Care Team Providers Care Commercial Loan Underwriter Name Role Phone Pablo Andrea MD Unavailable Unavailable Advance Directives Directive Yes / No Effective Date File Name No Information Encounters Encounter Description Practice Location Reason(s) For Visit Diagnoses Date Provider Providers Copied on Encounter [facility], [address] [place], [id number], [place] tel:[phone] [facility] No Information Emre Shah. [address] [facility] [place], [id number], [place]. tel:[phone] Family History Family Member Type Diagnosis Age At Onset No Information Payers Payer name Insurance type Covered democrat ID Authoriza tion(s) No Information Social History Type Description Quantity Date Captured Comments Sex Male Smoking Status No Information Chief Complaint And Reason For Visit No Information Plan Of Treatment Date Type Action Status No Information History Of Present Illness Encounter Date Complaint History Of Prese nt Illness No Information Instructions Date Instruction Additional Infor mation No Information Assessments Type Assessment Date No Information
[2024-05-20 12:27] VITALS: BP 156/97; PULSE 85; RESP 20; TEMP 36.9; O2SAT 97
--- NOTE | 2024-05-20 13:18 | PC.NURSE ---
Spoke with [place]ano at poison control. They recommend irrigation for appox 20 min and applying petroleum jelly 2-3 x day.
--- OUTSIDE RECORDS SUMMARY | 2024-05-20 13:22 | XMS_ITS | Continuity of Care Document ---
Author Organization [facility] Address [address] [facility] [place] [address] Phone Care Team Providers Care Biomedical Analytical Scientist Name Role Phone Pablo Andrea MD Unavailable Unavailable Advance Directives Directive Yes / No Effective Date File Name No Information Encounters Encounter Description Practice Location Reason(s) For Visit Diagnoses Date Provider Providers Copied on Encounter [facility], [address] [place], [place], [id number], [place] tel:[phone] [facility] No Information Emre Shah. [address] [employer] [facility] [place], [place], [address], [place]. tel:[phone] Family History Family Member Type Diagnosis Age At Onset No Information Payers Payer name Insurance type Covered republican ID Authoriza tion(s) No Information Social History [...]
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
--- NOTE | 2024-05-20 13:47 | ECG_ITS ---
Test Date: 2024-05-20 14:19:51 Measurements Intervals [place] Rate: 81 P: 48 IA: 194 QRS: 41 QRSD: 111 T: 24 QT: 363 QTc: 423 Interpretive Statements SINUS RHYTHM MINIMAL Q WAVES- DIFFUSE LEADS BASELINE ARTIFACT- I, III, AVL BORDERLINE ECG No previous ECG available for comparison Electronically Signed On 05-20-2024 14:33:43 CDT by Luis Colon D.O.
[2024-05-20] MEDS: HYDROmorphone HCL INJ (*CRX) 1 MG/ML SYR IM (14:15)
[2024-05-20 14:30] LABS: Basophils Absolute Auto 0.1 K/mm3 (0.0-0.1); Basophils Percent Auto 0.7 % (0.2-1.2); Eosinophils Percent Auto 0.4 % (0-4.4); Hematocrit 45.8 % (42.0-52.0); Hemoglobin 15.2 g/dL (14.0-18.0); Immature Granulocyte Absolute 0.02 K/mm3 (0.00-0.031); Immature Granulocyte Percent A 0.2 % (0-0.5); Lymphocytes Absolute Auto 1.65 K/mm3 (0.9-3.2); Lymphocytes Percent Auto 19.9 % (18.3-44.2); Mean Corpuscular HGB Conc 33.2 g/dl (32-36); Mean Corpuscular Hemoglobin 29.3 pg (26-34); Mean Corpuscular Volume 88.4 fl (80-100); Mean Platelet Volume 9.7 fl (7.4-10.4); Monocytes Absolute Auto 0.5 K/mm3 (0.1-0.6); Monocytes Percent Auto 5.9 % (2.6-8.5); Neutrophils Absolute Auto 6.1 K/mm3 (1.3-6.7); Neutrophils Percent Auto 72.9 % (45.5-73.1); Platelet Count Result 270 k/mm3 (150-375); Red Blood Count 5.18 M/mm3 (4.6-6.20); Red Cell Distribution Width 12.8 % (11.5-14.5); White Blood Count 8.3 K/mm3 (4.5-10.0)
[2024-05-20 14:41] LABS: Magnesium 2.1 mg/dL (1.6-2.3)
--- NOTE | 2024-05-20 14:45 | PC.NURSE ---
Pt has been running water over hands frequently since arrival to ed.
[2024-05-20] MEDS: KETOROLAC 30 MG/ML VIAL (*BKC) IM (15:19)
[2024-05-20] MEDS: CALCIUM GLUCONATE 1,000 MG/10 ML VIAL 3500 MG XX (16:28)
[2024-05-20] MEDS: ACETAMINOPHEN 500 MG TABLET 1000 MG PO (17:07)
[2024-05-20 17:24] VITALS: BP 136/77; PULSE 84; RESP 18; O2SAT 100
== END 2024-05-20 17:26 | disposition home or self-care (01) ==
PROVIDERS: Emergency Provider Student in an Organized Health Care Education/Training Program; PCP Internal Medicine
DX: T65.891A Toxic effect of other specified substances, accidental (unintentional), initial encounter (principal); T23.402A Corrosion of unspecified degree of left hand, unspecified site, initial encounter; T23.401A Corrosion of unspecified degree of right hand, unspecified site, initial encounter; T32.0 Corrosions involving less than 10% of body surface; R94.31 Abnormal electrocardiogram [ECG] [EKG]
CPT/HCPCS: 36415; 83735; 85025; 93005; 96372; 99284; A9270; J0612; J1171; J1885